=== PATIENT | female | born 1935 | race Caucasian/White ===

== ENCOUNTER → 2016-03-29 | Outpatient (CLI) | payer OTHER, BC ==
[~2016-03-29] MED LIST: AMLO-110 PO; ASPI81TA28 PO; CALC500C70 PO; ESTR1CRE TOP; FURO40TA3 PO; HYDR-4852 PO; KLOR-CON M20 PO; LEVO88TA3 PO; MULT-506 PO; PRAV80TA2 PO; RAMI10CA PO; TCMD2 PO
[2016-03-29 18:21] LABS: INR 1.8 (0.9-1.1); PROTHROMBIN TIME (PATIENT) 19.7 SECONDS (9.0-12.0)
[2016-03-29 18:46] LABS: THYROID STIMULATING HORMONE 4.03 uIu/ml (0.300-4.500)
== END | disposition home or self-care (01) ==
LOC: C.LABMFLN 11:31
PROVIDERS: ATTEND Family Medicine
DX: I48.91 Unspecified atrial fibrillation (principal); E78.5 Hyperlipidemia, unspecified; E03.9 Hypothyroidism, unspecified

== ENCOUNTER → 2016-06-26 | Outpatient (CLI) | payer OTHER, BC ==
[2016-06-26 18:21] LABS: BASO % 0.9 %; BASO ABS # 0.05 K/uL (0-0.2); COMPLETE YES; EOS % 2.3 %; HEMATOCRIT 30.3 % (37-47); IG% 0.2 %; LYMPH % 10.8 %; LYMPH ABS # 0.62 K/uL (1.2-3.4); MEAN CELL VOLUME 96.8 fL (80-100); MEAN CORPUSCULAR HEMOGLOBIN 31.6 pg (25-34); MEAN CORPUSCULAR HGB CONC 32.7 g/dl (32-36); MEAN PLATELET VOLUME 10.4 fL (7.4-10.4); MONO % 10.2 %; NEUT % 75.6 %; PLATELET COUNT 204 K/uL (130-400); RED BLOOD COUNT 3.13 M/uL (4.2-5.4); WHITE BLOOD COUNT 5.76 K/uL (4.8-10.8)
[2016-06-26 18:45] LABS: INR 2.5 (0.9-1.1); PROTHROMBIN TIME (PATIENT) 27.4 SECONDS (9.0-12.0)
[2016-06-26 19:08] LABS: BLOOD UREA NITROGEN 59 mg/dl (7-18); BUN/CREATININE RATIO 36.8 (10-20); CALCIUM 9.2 mg/dl (8.5-10.1); CARBON DIOXIDE 25 mmol/L (21-32); CHLORIDE 100 mmol/L (98-107); GLUCOSE 80 mg/dl (70-99); POTASSIUM 4.5 mmol/L (3.5-5.1); SODIUM 134 mmol/L (136-145)
[2016-06-26 19:09] LABS: PHOSPHORUS 3.6 mg/dl (2.5-4.9)
== END | disposition home or self-care (01) ==
LOC: C.LABMFLN 10:38
PROVIDERS: ATTEND Family Medicine
DX: I50.32 Chronic diastolic (congestive) heart failure (principal); N18.3 Chronic kidney disease, stage 3 (moderate); I48.91 Unspecified atrial fibrillation

== ENCOUNTER → 2016-07-30 | Outpatient (CLI) | payer OTHER, BC ==
[2016-07-30 17:43] LABS: HEMATOCRIT 27.1 % (37-47); MEAN CELL VOLUME 95.8 fL (80-100); MEAN CORPUSCULAR HEMOGLOBIN 31.4 pg (25-34); MEAN CORPUSCULAR HGB CONC 32.8 g/dl (32-36); PLATELET COUNT 224 K/uL (130-400); RED BLOOD COUNT 2.83 M/uL (4.2-5.4); WHITE BLOOD COUNT 6.09 K/uL (4.8-10.8)
[2016-07-30 18:05] LABS: BLOOD UREA NITROGEN 68 mg/dl (7-18); BUN/CREATININE RATIO 45.4 (10-20); CALCIUM 8.8 mg/dl (8.5-10.1); CARBON DIOXIDE 26 mmol/L (21-32); CHLORIDE 95 mmol/L (98-107); GLUCOSE 102 mg/dl (70-99); POTASSIUM 4.7 mmol/L (3.5-5.1); SODIUM 129 mmol/L (136-145)
[2016-07-30 18:11] LABS: FERRITIN 83.9 ng/ml (8.0-388.0); PHOSPHORUS 3.8 mg/dl (2.5-4.9); TOTAL IRON BINDING CAPACITY 399 mcg/dl (250-450)
[2016-07-30 18:22] LABS: URINE PROTIEN/CREAT RATIO 1.1 (0-0.2); URINE TOTAL PROTEIN 33.9 mg/dl (0-11.9)
[2016-07-30 18:23] LABS: URINE APPEARANCE TURBID (CLEAR); URINE BILIRUBIN NEG (NEG); URINE COLOR YELLOW; URINE EPITHELIAL CELL AUTO >30 /lpf (0-5); URINE NITRITE NEG (NEG); URINE SPECIFIC GRAVITY 1.009 (1.000-1.030); UROBILINOGEN NEG (NEG)
[2016-07-30 18:27] LABS: MANUAL MICROSCOPIC REQUIRED? NO; REVIEW REQ? YES
== END ==
LOC: C.LABMFLN 07:00
PROVIDERS: ATTEND Internal Medicine Nephrology
DX: N18.3 Chronic kidney disease, stage 3 (moderate) (principal); D64.9 Anemia, unspecified; E55.9 Vitamin D deficiency, unspecified